=== PATIENT | female | born 1990 | race African-American/Black ===

== ENCOUNTER 2020-05-27 13:35 | Emergency (ER) | payer OTHER ==
[2020-05-27 13:50] VITALS: BP 117/65; PULSE 59; TEMP 98.1; BMI 42.2
--- NOTE | 2020-05-27 14:58 | PDOC ---
History of Present Illness - General Chief Complaint: Injury Stated Complaint: LFT ANKLE INJURY (SPRAIN) Time Seen by Provider: 05/27/20 14:18 History Source: Patient Exam Limitations: Clinical Condition - History of Present Illness Initial Comments: 05/27/20 15:23 Patient with no significant past medical history present with complaint of pain to lateral aspect of left ankle status post slip on a curbside and twisting left ankle yesterday. Patient reported increased pain to left ankle with ambulation. Reported remote history of ankle sprain 10 years ago. Denies any ankle fracture in the past. Denies any other symptoms Occurred: reports: yesterday Past History - Medical History Allergies/Adverse Reactions: Allergies Allergy/AdvReac Type Severity Reaction Status Date / Time No Known Allergies Allergy Verified 05/27/20 14:48 Home Medications: Ambulatory Orders Ibuprofen 600 mg PO Q8H PRN #20 tablet 05/27/20 COPD: No - Reproductive History Is Patient Now?: No - Psycho-Social/Smoking History Smoking History: Never smoked Have you smoked in the past 12 months: No Information on smoking cessation initiated: No - Substance Abuse Hx (Audit-C & DAST Scrn) How often the patient has a drink containing alcohol: Never Score: In Men: 4 or > Positive; In Women: 3 or > Positive: 0 Screen Result (Pos requires Nsg. Audit-10AR): Negative In the last yr the pt used illegal drug/Rx for NonMed reason: No Score: Yes response is considered Positive: 0 Screen Result (Positive result requires Nsg. DAST-10): Negative Review of Systems - Review of Systems Able to Perform ROS?: Yes Is the patient limited Japanese proficient: No Constitutional: No: Chills, Fever, Malaise HEENTM: No: Symptoms Reported, See HPI, Eye Pain, Blurred Vision, Tearing, Recent change in vision, Double Vision, Cataracts, Ear Pain, Ocular Prothesis, Ear Discharge, Nose Pain, Nose Congestion, Tinnitus, Nose Bleeding, Hearing Loss, Throat Pain, Throat Swelling, Mouth Pain, Dental Problems, Difficulty Swallowing, Mouth Swelling, Other Respiratory: No: Symptoms reported, See HPI, Cough, Orthopnea, Shortness of Breath, SOB with Exertion, SOB at Rest, Stridor, Wheezing, Productive cough, Hemoptysis, Other Cardiac (ROS): No: Symptoms Reported, See HPI, Chest Pain, Edema, Irregular Heart Rate, Lightheadedness, Palpitations, Syncope, Chest Tightness, Other ABD/GI: No: Symptoms Reported Musculoskeletal: Yes: Symptoms Reported, See HPI, Joint Pain (left ankle pain), Muscle Pain (lateral left ankle pain) Neurological: No: Symptoms reported, Tingling, Weakness All Other Systems: Reviewed and Negative *Physical Exam - Vital Signs Last Vital Signs Temp Pulse Resp BP Pulse Ox 98.1 F 59 L 16 117/65 100 05/27/20 13:41 05/27/20 13:41 05/27/20 13:41 05/27/20 13:41 05/27/20 13:41 - Physical Exam 05/27/20 15:26 GENERAL: Well developed, well nourished. Awake and alert. No acute distress. PULMONARY: No evidence of respiratory distress. MUSCULOSKELETAL : Moderate tenderness over lateral malleolus of left ankle with mild localized swelling over lateral malleolus of left ankle. No tenderness over medial malleolus or of the foot. Negative anterior and posterior drawer test of left ankle. No tenderness to left lower leg SKIN: Warm and dry. Normal capillary refill. Mild localized swelling over lateral malleolus of left ankle. No bruising or ecchymosis to ankle or foot. NEUROLOGICAL: Alert, awake, appropriate. No motor deficits in the lower extremities. Gait is normal without ataxia. PSYCHIATRIC: Cooperative. Good eye contact. Appropriate mood and affect. General Appearance: Yes: Nourished, Appropriately Dressed. No: Apparent Distress ED Treatment Course - RADIOLOGY Radiology Studies Ordered: Category Date Time Status ANKLE & FOOT-LEFT* [RAD] Stat Radiology 05/27/20 14:26 Ordered Medical Decision Making - Medical Decision Making 05/27/20 15:23 Patient with no significant past medical history present with complaint of pain to lateral aspect of left ankle status post slip on a curbside and twisting left ankle yesterday. Patient reported increased pain to left ankle with ambulation. Reported remote history of ankle sprain 10 years ago. Denies any ankle fracture in the past. Denies any other symptoms Exam significant for moderate tenderness to lateral malleolus of left ankle with mild localized swelling over lateral malleolus. No tenderness over medial malleolus or rest of the foot. No tenderness to left leg. X-ray of left ankle and foot shows no acute fracture or dislocation. Patient symptoms likely ankle sprain. Left ankle wrapped with Fercho bandage. Patient has home ankle brace and will use when get home. Patient advised to do hot compresses and keep weight off left ankle and advised to soak left foot in [place] salt water to help with swelling with Motrin as needed for pain with orthopedics follow-up Discharge - Discharge Information Problems reviewed: Yes Clinical Impression/Diagnosis: Left ankle sprain Qualifiers: Encounter type: initial encounter Involved ligament of ankle: unspecified ligament Qualified Code(s): S93.402A - Sprain of unspecified ligament of left ankle, initial encounter Condition: Stable Disposition: HOME - Admission No - Additional Discharge Information Prescriptions: Ibuprofen 600 mg PO Q8H PRN #20 tablet PRN Reason: pain - Follow up/Referral Referrals: Pramod Milton DO [Staff Physician] - - Patient Discharge Instructions Patient Printed Discharge Instructions: DI for Ankle Sprain Additional Instructions: X-ray of the ankle shows no acute fracture or dislocation. Your pain is likely from ankle sprain. Use home ankle brace daily to help support ankle in 3 prescribed Motrin as needed for pain. Apply heat to ankle swelling as needed and soak left foot in [place] salt water to help with swelling. Refrain from prolonged standing and walking or strenuous activity with a left ankle. Follow- up with referred orthopedics if symptoms persist for more than 5 days - Post Discharge Activity Work/Back to School Note: Back to Work
== END 2020-05-27 15:00 | disposition home or self-care (01) ==
LOC: JERFT 13:35
DX: S93.402A Sprain of unspecified ligament of left ankle, initial encounter (principal)
CPT/HCPCS: 73610-TC-LT-FY; 73630-TC-LT; 99283-25

== ENCOUNTER 2020-10-19 17:52 | Emergency (ER) | payer OTHER ==
[2020-10-19 18:24] VITALS: BP 112/79; PULSE 69; TEMP 98.1; BMI 22.4
[2020-10-19 19:40] LABS: EPI CELLS 34 /uL (0-25.1); HYALINE CASTS 2 /uL (0-3.1); URINE APPEARANCE CLEAR; URINE BACTERIA 925 /uL (0-1359); URINE BILIRUBIN NEGATIVE (NEGATIVE); URINE COLOR YELLOW; URINE GLUCOSE (UA) NEGATIVE (NEGATIVE); URINE KETONE NEGATIVE (NEGATIVE); URINE LEUK ESTERASE 1+ (NEGATIVE); URINE NITRITE NEGATIVE (NEGATIVE); URINE PROTEIN TRACE (NEGATIVE); URINE RBC 6 /uL (0-23.9); URINE UROBILINOGEN 0.2 mg/dL (0.2-1.0); URINE WBC 77 /uL (0-25.8)
[2020-10-19 19:46] LABS: BASO % 0.4 % (0-2.0); EOS % 0.9 % (0-4.5); HEMATOCRIT 36.1 % (32.4-45.2); HEMOGLOBIN 12.2 GM/dL (10.7-15.3); LYMPH % 27.7 % (8-40); MCH 33.5 pg (25.7-33.7); MCHC 33.9 g/dl (32.0-36.0); MEAN CELL VOLUME 98.7 fl (80-96); MONO % 9.1 % (3.8-10.2); NEUT % 61.9 % (42.8-82.8); PLATELET COUNT 349 K/MM3 (134-434); RBC 3.65 M/mm3 (3.60-5.2); RDW 12.8 % (11.6-15.6); WHITE BLOOD COUNT 8.3 K/mm3 (4.0-10.0)
== END 2020-10-19 21:14 | disposition home or self-care (01) ==
LOC: JER 17:52
DX: O26.851 Spotting complicating pregnancy, first trimester (principal); O20.0 Threatened abortion; N30.01 Acute cystitis with hematuria; Z3A.01 Less than 8 weeks gestation of pregnancy
CPT/HCPCS: 36415; 76817-TC; 81003; 84702; 85025; 86850; 86900; 86901; 87086; 99284-25